=== PATIENT | female | born 1950 | race American Indian/Alaskan Native ===

== ENCOUNTER 2017-02-08 16:25 | Emergency (ER) | payer MEDICAID ==
[2017-02-08 17:42] LABS: Basophils % (Auto) 0.6 % (0.0-1.8); Eosinophils % (Auto) 1.3 % (0.0-4.3); Hematocrit 40.3 % (30.3-42.9); Hemoglobin 13.2 gm/dl (10.1-14.3); Mean Corpuscular HGB Conc 33 % (30-34); Mean Corpuscular Hemoglobin 29 pg (28-32); Mean Corpuscular Volume 90 fl (79-97); Platelet Count 271 K/mm3 (140-440); Red Blood Count 4.48 M/mm3 (3.65-5.03); Red Cell Distribution Width 15.2 % (13.2-15.2); White Blood Count 7.1 K/mm3 (4.5-11.0)
--- NOTE | 2017-02-08 17:51 | Emergency Department Report ---
HPI - General Chief Complaint: Psych Time Seen by Provider: 02/08/17 17:41 - HPI HPI: [facility] The patient is a 67-year-old female presenting with chief complaint of disorganized thought. Patient was reportedly brought in by police with a left without giving a report. The patient has rambling speech which is at times tangential. The patient answers some questions and others she begins to ramble stating that people are "witches." Location: Mental state Duration: Unknown Quality: Disorganized Severity: Moderate Modifying factors: [see above] Context: [see above] Mode of transportation: [not driving] ED Past Medical Hx - Past Medical History Hx Psychiatric Treatment: Yes Additional medical history: syphillis - Surgical History Past Surgical History?: No - Family History Family history: no significant - Social History Smoking Status: Former Smoker Substance Use Type: None - Medications Home Medications: Home Medications Medication Instructions Recorded Confirmed Last Taken Type predniSONE [Deltasone] 10 mg PO QDAY #5 tablet 08/06/13 Unknown Rx ED Review of Systems ROS: Stated complaint: MH/EVAL Other details as noted in HPI Comment: Unobtainable due to pts medical conditions Physical Exam - Physical Exam Vital Signs: Vital Signs 02/08/17 16:54 Temperature 98.8 F Pulse Rate 91 H Respiratory 14 Rate Blood Pressure 109/61 O2 Sat by Pulse 99 Oximetry Physical Exam: GENERAL: The patient is well-developed female sitting in chair not appearing to be in acute distress HEENT: Normocephalic. Atraumatic. Extraocular motions are intact. Patient has moist mucous membranes. NECK: Supple. No meningitic signs are noted. Trachea midline CHEST/LUNGS: Clear to auscultation. There is no respiratory distress noted. HEART/CARDIOVASCULAR: Regular. There is no tachycardia. There is no gallop rub or murmur. ABDOMEN: Abdomen is soft, nontender. Patient has normal bowel sounds. There is no abdominal distention. SKIN: There is no rash. There is no edema. There is no diaphoresis. NEURO: The patient is awake and alert. The patient is cooperative. The patient has rambling speech MUSCULOSKELETAL: There is no evidence of acute injury. ED Course Vital Signs 02/08/17 16:54 Temperature 98.8 F Pulse Rate 91 H Respiratory 14 Rate Blood Pressure 109/61 O2 Sat by Pulse 99 Oximetry ED Medical Decision Making - Lab Data Result diagrams: 02/08/17 17:29 02/08/17 17:29 Laboratory Tests 02/08/17 02/08/17 02/08/17 17:29 17:29 17:29 WBC 7.1 RBC 4.48 Hgb 13.2 Hct 40.3 MCV 90 MCH 29 MCHC 33 RDW 15.2 Plt Count 271 Lymph % (Auto) 39.8 H [place] % (Auto) 8.5 H Eos % (Auto) 1.3 Baso % (Auto) 0.6 Lymph # 2.8 Caroline # 0.6 Eos # 0.1 Baso # 0.0 Seg Neutrophils % 49.8 Seg Neutrophils # 3.5 Sodium 139 Potassium 4.6 Chloride 100.9 Carbon Dioxide 26 Anion Gap 17 BUN 13 Creatinine 0.8 Estimated GFR > 60 BUN/Creatinine Ratio 16.25 Glucose 96 Calcium 9.1 Urine Color Urine Turbidity Urine pH Ur Specific [place] Urine Protein Urine Glucose (UA) Urine Ketones Urine Blood Urine Nitrite Urine Bilirubin Urine Urobilinogen Ur Leukocyte Esterase Urine WBC (Auto) Urine RBC (Auto) U Epithel Cells (Auto) Urine Bacteria (Auto) Urine Mucus Urine Opiates Screen Urine Methadone Screen Ur Barbiturates Screen Ur Phencyclidine Scrn Ur Amphetamines Screen U Benzodiazepines Scrn Urine Cocaine Screen U Marijuana (THC) Screen Drugs of Abuse Note Plasma/Serum Alcohol < 0.01 02/08/17 02/08/17 18:06 18:06 WBC RBC Hgb Hct MCV MCH MCHC RDW Plt Count Lymph % (Auto) [place] % (Auto) Eos % (Auto) Baso % (Auto) Lymph # [place] # Eos # Baso # Seg Neutrophils % Seg Neutrophils # Sodium Potassium Chloride Carbon Dioxide Anion Gap BUN Creatinine Estimated GFR BUN/Creatinine Ratio Glucose Calcium Urine Color Yellow Urine Turbidity Clear Urine pH 5.0 Ur Specific [place] 1.017 Urine Protein <15 mg/dl Urine Glucose (UA) Neg Urine Ketones Neg Urine Blood Neg Urine Nitrite Neg Urine Bilirubin Neg Urine Urobilinogen 2.0 Ur Leukocyte Esterase Neg Urine WBC (Auto) 1.0 Urine RBC (Auto) 2.0 U Epithel Cells (Auto) 1.0 Urine Bacteria (Auto) 1+ Urine Mucus Few Urine Opiates Screen Presumptive negative Urine Methadone Screen Presumptive negative Ur Barbiturates Screen Presumptive negative Ur Phencyclidine Scrn Presumptive negative Ur Amphetamines Screen Presumptive negative U Benzodiazepines Scrn Presumptive negative Urine Cocaine Screen Presumptive negative U Marijuana (THC) Screen Presumptive negative Drugs of Abuse Note Disclamer Plasma/Serum Alcohol - Differential Diagnosis schizophrenia, bipolar disorder Critical care attestation.: If time is entered above; I have spent that time in minutes in the direct care of this critically ill patient, excluding procedure time. ED Disposition Clinical Impression: Psychosis Disposition: [id number]/TX-[facility] PSY HOSP/PSY UNIT Is pt being admited?: No Does the pt Need Aspirin: No Condition: Fair Referrals: PRIMARY CARE, [Primary Care Provider] - 3-5 Days Time of Disposition: 19:35 (awaiting acceptance)
[2017-02-08 17:58] LABS: BUN/Creatinine Ratio 16.25; Blood Urea Nitrogen 13 mg/dL (7-17); Calcium 9.1 mg/dL (8.4-10.2); Carbon Dioxide 26 mmol/L (22-30); Glucose 96 mg/dL (65-100)
[2017-02-08 17:59] LABS: Anion Gap 17 mmol/L; Chloride 100.9 mmol/L (98-107); Potassium 4.6 mmol/L (3.6-5.0); Sodium 139 mmol/L (137-145)
[2017-02-08 18:27] LABS: Urine Drugs of Abuse Note Disclamer
[2017-02-08 18:40] LABS: Bacteria,Urine 1+ /HPF (Negative); Bilirubin,Urine NEG (Negative); Blood,Urine NEG (Negative); Ketones,Urine NEG (Negative); Leukocyte Esterase,Urine NEG (Negative); Mucus,Urine FEW /HPF; Nitrite,Urine NEG (Negative); Protein,Urine <15 mg/dL mg/dL (Negative)
[2017-02-09 10:21] VITALS: BP 133/78
--- NOTE | 2017-02-09 10:51 | Consultation ---
History of Present Illness - Reason for Consult Consult date: 02/09/17 Reason for consult: Mental Health Evaluation Requesting physician: DESTINEE BROWN - Chief Complaint Chief complaint: "What do you want" - History of Present Psychiatric Illness The patient is a 67-year-old female presenting with chief complaint of disorganized thought. Today patient is irritable, hyperverbal and uncooperative. When I introduced myself to her, She stated, "What do you want." She would look off and become quiet during our conversation, possibly responding to some type of stimuli. She is a poor historian at this time. No gestures of SI/HI's. Medications and Allergies Allergies Allergy/AdvReac Type Severity Reaction Status Date / Time No Known Allergies Allergy Verified 11/07/15 01:21 Home Medications Medication Instructions Recorded Confirmed Last Taken Type RX: Unobtainable 02/08/17 02/08/17 Unknown History Past psychiatric history - Past Medical History Past Medical History: other (syphilis) Past Surgical History: Other (unable to obtain) - past Psychiatric treatment and history psychiatric treatment history: Patient stated that she have been to [facility]. She denies a fam hx. - Social History Social history: other (unable to obtain) Mental Status Exam - Vital signs Last Vital Signs Temp 98.9 F 02/09/17 10:20 Pulse 78 02/09/17 10:20 Resp 18 02/09/17 10:20 BP 133/78 02/09/17 10:20 Pulse Ox 100 02/09/17 10:20 - Exam Narrative exam: ROS (+) Psychosis MSE: Appearance: irritable, uncooperative Behavior: good eye contact, hyperverbal Speech: regular rate and tone Mood: "why you ask" Affect: congruent to mood Thought Process: tangential Thought Content: no gestures of SI/HI's, disorganized Motor Activity: ambulatory Cognition: unable to assess Insight: unable to assess Judgment: unable to assess Results Result Diagrams: 02/08/17 17:29 02/08/17 17:29 Abnormal lab results 02/08/17 Range/Units 17:29 Lymph % (Auto) 39.8 H (13.4-35.0) % [place] % (Auto) 8.5 H (0.0-7.3) % All other labs normal. Assessment and Plan Assessment and plan: Impression: Unspecified Psychotic DO. Today patient is irritable, hyperverbal and uncooperative. DDx: Schizophrenia, Schizoaffective DO Recommendation/Plan: Continue 1013 with placement to inpatient psy services ( Pending [facility]).
== END 2017-02-09 14:43 ==
LOC: ED 16:25
DX: F29 Unspecified psychosis not due to a substance or known physiological condition (principal); Z87.891 Personal history of nicotine dependence
CPT/HCPCS: 36415; 80048; 80307; 81001; 85025; 99285; G0480; 80320

== ENCOUNTER 2020-04-09 00:11 | Emergency (ER) | payer MEDICARE, MEDICAID ==
[2020-04-09 10:28] VITALS: BP 143/79
== END 2020-04-09 13:17 | disposition left against medical advice (07) ==
LOC: ED 00:11
DX: R41.82 Altered mental status, unspecified (principal); Z53.21 Procedure and treatment not carried out due to patient leaving prior to being seen by health care provider